=== PATIENT | female | born 1990 | race Two or more races ===

== ENCOUNTER 2021-03-15 17:50 | Inpatient (IN) | payer OTHER ==
[~2021-03-15] VITALS: Ht 157.5 cm; Wt 76.2 kg
[2021-03-15] MEDS ORDERED: PRENATAL TABLE1 EAC1 PO (18:49)
== END 2021-03-18 19:50 | disposition home or self-care (01) | DRG 807 ==
LOC: OB/GYN 17:50 → LDR 17:50 → OB/GYN 03-16 15:40
PROVIDERS: ADMIT Obstetrics & Gynecology; ATTEND Obstetrics & Gynecology
PROC: 10E0XZZ Delivery of Products of Conception, External Approach (ICD-10-PCS; principal; 2021-03-16)
PROC: 4A1HXFZ Monitoring of Products of Conception, Cardiac Rhythm, External Approach (ICD-10-PCS; 2021-03-16)
DX: O70.1 Second degree perineal laceration during delivery (principal); Z37.0 Single live birth; Z3A.38 38 weeks gestation of pregnancy; Z20.822 Contact with and (suspected) exposure to COVID-19